=== PATIENT | male | born 1980 | race Caucasian/White ===

== ENCOUNTER 2020-09-14 15:10 | Emergency (ER) | payer MEDICAID ==
[~2020-09-14] VITALS: Ht 177.8 cm; Wt 90.7 kg
[2020-09-14 15:28] VITALS: BP 141/94
--- NOTE | 2020-09-14 15:35 | NUR ---
patient bibsister, c/o cough, fever, chills, and weak x 3 days.Aox4, no sob noted, no s/o any acute distress. able to to make needs known. denies pain at this time. breathing even and unlabored. MD at bedside. will continue with plan of care
--- NOTE | 2020-09-14 16:23 | NUR ---
covid 19 swap obtained for rapid/pcr.
[2020-09-14 17:52] LABS: BASOPHILS # (AUTO) 0.1 K/uL (0.0-0.2); BASOPHILS % (AUTO) 0.8 % (0.0-2.0); EOSINOPHILS % (AUTO) 1.8 % (0.0-6.0); HEMATOCRIT 48 % (39-51); LYMPHOCYTES # (AUTO) 1.9 K/uL (0.8-4.8); LYMPHOCYTES % (AUTO) 19.3 % (20.0-44.0); MEAN CORPUSCULAR HGB CONC 33 g/dl (31.0-36.0); MEAN CORPUSCULAR VOLUME 88 fL (80-96); MONOCYTES # (AUTO) 0.8 K/uL (0.1-1.30); MONOCYTES % (AUTO) 7.9 % (2.0-12.0); NEUTROPHILS # (AUTO) 6.8 K/uL (1.8-8.9); NEUTROPHILS % (AUTO) 70.2 % (43.0-81.0); PLATELET COUNT (AUTO) 193 K/uL (150-450); RED BLOOD CELL COUNT(AUTO) 5.44 MIL/uL (4.5-6.0); WHITE BLOOD COUNT (AUTO) 9.8 K/uL (4.3-11.0)
[2020-09-14 18:01] LABS: CALCIUM, SERUM 9.2 mg/dL (8.5-10.1); CARBON DIOXIDE 33 mmol/L (21-32); CHLORIDE 102 mmol/L (98-107); CREATININE 0.9 mg/dL (0.6-1.3); GLUCOSE 98 mg/dL (74-106); POTASSIUM 4.4 mmol/L (3.5-5.1); SODIUM SERUM 139 mmol/L (136-145); UREA NITROGEN, BLOOD 15 mg/dL (7-18)
--- NOTE | 2020-09-14 18:27 | NUR ---
CALLED [facility] [phone] DR. BERRY.
--- NOTE | 2020-09-14 18:33 | NUR ---
DR. BERRY SPEAKING WITH DR. WILLIAMSON.
[2020-09-14] MEDS ORDERED: IBUP-1955 PO (18:53)
[2020-09-14] MEDS ORDERED: AZIT1PAC PO (18:55)
[2020-09-14] MEDS ORDERED: IBUPROFEN 400 MG TABLET ONE ×2 (18:58→19:00)
[2020-09-14] MEDS ORDERED: IBUPROFEN 400 MG TABLET PO ONE (19:00)
--- NOTE | 2020-09-14 19:10 | NUR ---
Patient discharged to home in stable condition. Written and verbal after care instructions given. Patient verbalizes understanding of instruction. Pt left ER in stable condition.
== END 2020-09-14 19:11 | disposition home or self-care (01) ==
LOC: ER 15:10
DX: B34.9 Viral infection, unspecified (principal); I31.9 Disease of pericardium, unspecified; Z20.822 Contact with and (suspected) exposure to COVID-19; R91.8 Other nonspecific abnormal finding of lung field; I51.7 Cardiomegaly
CPT/HCPCS: 36415; 71045; 80048; 83880; 84484; 85025; 87426; 93005; 99285; C9803; U0003

== ENCOUNTER 2020-11-04 10:22 | Emergency (ER) | payer MEDICAID ==
[~2020-11-04] VITALS: Ht 177.8 cm; Wt 97.5 kg
[~2020-11-04 10:22] MED LIST: AZIT1PAC PO; IBUP-1955 PO
[2020-11-04 10:42] VITALS: BP 123/78
--- NOTE | 2020-11-04 10:53 | NUR ---
[facility] REFUELING [facility] AT BEDSIDE FOR XRAY.
--- NOTE | 2020-11-04 11:08 | NUR ---
covid swab collected and sent to lab.
--- NOTE | 2020-11-04 11:44 | NUR ---
Patient discharged to home in stable condition. Written and verbal after care instructions given. Patient verbalizes understanding of instruction.
== END 2020-11-04 11:45 | disposition home or self-care (01) ==
LOC: ER 10:24
DX: U07.1 COVID-19 (principal)
CPT/HCPCS: 71045; 87426; 99284; C9803

== ENCOUNTER 2020-11-22 10:10 | Emergency (ER) | payer MEDICAID ==
[~2020-11-22] VITALS: Ht 177.8 cm; Wt 97.5 kg
--- NOTE | 2020-11-22 11:09 | NUR ---
DR PENA AT BEDSIDE FOR EVAL.
--- NOTE | 2020-11-22 11:16 | NUR ---
RADIOLOGY AT BEDSIDE FOR CHEST XRAY.
--- NOTE | 2020-11-22 11:25 | NUR ---
IV LINE STARTED BLOOD DRAWN AND SENT TO LAB.
[2020-11-22 11:32] LABS: BASOPHILS # (AUTO) 0.1 K/uL (0.0-0.2); EOSINOPHILS % (AUTO) 0.9 % (0.0-6.0); HEMATOCRIT 46 % (39-51); HEMOGLOBIN 15.4 g/dL (13.5-17.5); LYMPHOCYTES # (AUTO) 2.3 K/uL (0.8-4.8); MEAN CORPUSCULAR HGB CONC 33 g/dl (31.0-36.0); MEAN CORPUSCULAR VOLUME 87 fL (80-96); MONOCYTES # (AUTO) 0.7 K/uL (0.1-1.30); MONOCYTES % (AUTO) 7.7 % (2.0-12.0); NEUTROPHILS % (AUTO) 65.4 % (43.0-81.0); PLATELET COUNT (AUTO) 229 K/uL (150-450); WHITE BLOOD COUNT (AUTO) 9.1 K/uL (4.3-11.0)
[2020-11-22] MEDS ORDERED: ASPIRIN 325 MG TABLET ONE (11:40)
--- NOTE | 2020-11-22 11:42 | NUR ---
CALLED [facility] [employer].
--- NOTE | 2020-11-22 11:44 | NUR ---
ER MD AND [facility]OLOGY [employer] ON THE PHONE
[2020-11-22 11:45] LABS: CALCIUM, SERUM 9.2 mg/dL (8.5-10.1); CARBON DIOXIDE 29 mmol/L (21-32); CHLORIDE 104 mmol/L (98-107); CREATININE 0.8 mg/dL (0.6-1.3); GLUCOSE 103 mg/dL (74-106); POTASSIUM 4.5 mmol/L (3.5-5.1); SODIUM SERUM 140 mmol/L (136-145); UREA NITROGEN, BLOOD 17 mg/dL (7-18)
[2020-11-22] MEDS ORDERED: ASPIRIN 325 MG TABLET PO ONE (12:00)
[2020-11-22] MEDS ORDERED: METOPROLOL TARTRATE 25 MG TABLET PO ONE (12:30)
[2020-11-22] MEDS ORDERED: METOPROLOL TARTRATE 50 MG TABLET ONE (12:33)
--- NOTE | 2020-11-22 12:41 | NUR ---
PT TO RADIOLOGY FOR CT HEART ANGIOGRAM VIA [facility].
[2020-11-22] MEDS ORDERED: NITROGLYCERIN 0.4 MG/TAB BOTTLE ONE (12:53)
[2020-11-22] MEDS ORDERED: CT SWABBABLE VALVE TRANS SET 1 EA INFUS.SET MC ONE (12:53)
[2020-11-22] MEDS ORDERED: IOHEXOL-350 100 ML VIAL IV ONE ×2 (12:53→12:54)
[2020-11-22] MEDS ORDERED: IV NS 0.9% 250 ML IV ONE (12:53)
[2020-11-22] MEDS ORDERED: METOPROLOL TARTRATE INJ 5 MG/5 ML AMPUL ONE (12:58)
[2020-11-22] MEDS ORDERED: METOPROLOL TARTRATE INJ 5 MG/5 ML AMPUL IVP PRN (13:00)
[2020-11-22] MEDS ORDERED: NITROGLYCERIN 0.4 MG/TAB BOTTLE SL ONE (13:00)
--- NOTE | 2020-11-22 13:04 | NUR ---
CTA PROCEDURE DONE. WELL TOLERATED BY THE PT. V/S STABLE. KEPT RESTED AND COMFORTABLE. REPORT GIVEN TO FATOUMATA ARGUETA FOR RONY.
--- NOTE | 2020-11-22 13:06 | NUR ---
CT SCAN IS DONE. WAITING RESULTS
--- NOTE | 2020-11-22 13:30 | NUR ---
RETURNED FROM CT SCAN. VITALS UPDATED.
[2020-11-22] MEDS ORDERED: IBUP-1957 PO (14:51)
--- NOTE | 2020-11-22 14:59 | NUR ---
IV removed. Catheter intact and site benign. Pressure and 4x4 applied to site. No bleeding noted.Patient discharged to home in stable condition. Written and verbal after care instructions given. Patient verbalizes understanding of instruction.
[2020-11-22 15:00] VITALS: BP 121/74
== END 2020-11-22 15:00 | disposition home or self-care (01) ==
LOC: ER 10:12
DX: J98.11 Atelectasis (principal); F17.200 Nicotine dependence, unspecified, uncomplicated; Z79.899 Other long term (current) drug therapy
CPT/HCPCS: 36415; 71045; 75574; 80048; 83880; 84484; 85025; 85378; 93005; 99285; J3490; J7050; Q9967 ×2